=== PATIENT | male | born 1960 | race Caucasian/White ===

== ENCOUNTER 2019-05-11 17:04 | Emergency (ER) | payer OTHER ==
[~2019-05-11] VITALS: Ht 167.6 cm; Wt 68.0 kg
[2019-05-11 17:15] VITALS: BP 123/80
--- NOTE | 2019-05-11 17:15 | NUR ---
ED Nurse Note: Pt ambulated to ED c/o intermittent right side flank pain x 2 weeks;hx of kidney stone; reports no fever or chills. Placed on bed, VSS, NAD.
[2019-05-11] MEDS ORDERED: ZOLOFT100 MG ORAL (17:16)
[2019-05-11] MEDS ORDERED: ATORVASTATIN CA20 MG ORAL (17:16)
--- NOTE | 2019-05-11 17:28 | Emergency Room Report ---
History of Present Illness General Chief Complaint: Pain Source: Patient Present Illness HPI Disclaimer: Please note that this report is being documented using DRAGON technology. This can lead to erroneous entry secondary to incorrect interpretation by the dictating instrument. HPI: 58-year-old male history of recurrent nephrolithiasis presents for evaluation of flank pain. He reports right-sided aching and cramping pain for the past week. 2 weeks ago he passed a small stone and since then has had intermittent pain. Currently is 5/10. Does not radiate down to the groin. He has had stents, lithotripsy in the past. Does not follow regularly with a urologist. Denies dysuria but does note hematuria. Denies fevers, chills, abdominal pain, vomiting, diarrhea, chest pain, shortness of breath or other changes in his health. Denies pain in the testicles or groin. PMH: Recurrent kidney stones, thyroid dysfunction, hypercholesterolemia PSH: Lithotripsy Allergies: Penicillins, erythromycin, Flagyl Social Hx: Denies Allergies: Coded Allergies: AMOXICILLIN (Verified Allergy, Unknown, "STOMACH PROBLEM", 10/24/09) CEPHALOSPORINS (Verified Allergy, Unknown, HIVES, SWELLING, 10/24/09) ERYTHROMYCIN BASE (Verified Allergy, Unknown, "STOMACH PROBLEM", 10/24/09) METRONIDAZOLE (Verified Allergy, Unknown, RASH, 10/24/09) PENICILLINS (Verified Allergy, Unknown, RASH, 10/24/09) Nursing Documentation-PMH Past Medical History: No History, Except For Hx Cardiac Problems: No - Grave's disease Hx Hypertension: No - Kidney stone Hx Pacemaker: No Hx Asthma: No Hx COPD: No Hx Diabetes: No Hx Cancer: No Hx Gastrointestinal Problems: No Hx Dialysis: No History Of Psychiatric Problem: No - Depression Hx Neurological Problems: No Hx Cerebrovascular Accident: No Hx Seizures: No Review of Systems All Other Systems: negative except mentioned in HPI Physical Exam Vital Signs Date Time Temp Pulse Resp B/P (MAP) Pulse Ox O2 Delivery O2 Flow Rate FiO2 05/11/19 17:11 97.9 80 16 123/80 (94) 96 Room Air General: Awake and alert, no acute distress HEENT: NC/AT. EOMI. Resp: Normal work of breathing. Abdomen: Abdomen is soft, nondistended. Nontender Flank: Right-sided CVA tenderness, negative on the left. Skin: Intact. No abrasions, laceration or rash over the exposed skin MSK: Normal tone and bulk. Moving all extremities. No obvious deformity. Neuro: Awake and alert. Mentating appropriately. Medical Decision Making Diagnostic Impression: Primary Impression: Staghorn kidney stones Additional Impression: UTI (urinary tract infection) ER Course Is a 58-year-old male with a history of recurrent kidney stones presenting for evaluation of right-sided flank pain and hematuria for the past week. Differential includes was not limited to obstructing stone, pyelonephritis, UTI , nonobstructing stone, muscle ache/cramp. Given his history will obtain a CT scan to evaluate for obstruction, BMP to evaluate kidney function and urinalysis. Will give Toradol for pain. Laboratory Tests Test 05/11/19 17:20 05/11/19 17:44 Urine Color Pale yellow Urine Appearance Slightly cloudy Urine pH 7 (4.5-8.0) Urine Specific [place] 1.010 (1.005-1.035) Urine Protein 3+ (NEGATIVE) H Urine Glucose (UA) Negative (NEGATIVE) Urine Ketones Negative (NEGATIVE) Urine Blood 5+ (NEGATIVE) H Urine Nitrite Negative (NEGATIVE) Urine Bilirubin Negative (NEGATIVE) Urine Urobilinogen Normal MG/DL (0.0-1.0) Urine Leukocyte Esterase 2+ (NEGATIVE) H Urine RBC 60-80 /HPF (0 - 0) H Urine WBC 5-10 /HPF (0 - 0) H Urine Squamous Epithelial Cells None /LPF (NONE/OCC) Urine Bacteria Few /HPF (NONE) Sodium Level 143 MMOL/L (136-145) Potassium Level 4.1 MMOL/L (3.5-5.1) Chloride Level 106 MMOL/L (98-107) Carbon Dioxide Level 30 MMOL/L (21-32) Anion Gap 7 mmol/L (5-15) Blood Urea Nitrogen 10 mg/dL (7-18) Creatinine 0.9 MG/DL (0.55-1.30) Estimate Glomerular Filtration Rate > 60 mL/min (>60) Glucose Level 86 MG/DL (74-106) Calcium Level 9.4 MG/DL (8.5-10.1) CT/MRI/US Diagnostic Results CT/MRI/US Diagnostic Results : Impression Final Report EXAM: CT Abdomen and Pelvis Without Intravenous Contrast CLINICAL HISTORY: FLANK TECHNIQUE: Axial computed tomography images of the abdomen and pelvis without intravenous contrast. CTDI is 4.6 mGy and DLP is 262.7 mGy-cm. One or more of the following dose reduction techniques were used: automated exposure control, adjustment of the mA and/or kV according to patient size, use of iterative reconstruction technique. COMPARISON: None FINDINGS: Lung bases: Unremarkable. No mass. No consolidation. ABDOMEN: Liver: Unremarkable. Gallbladder and bile ducts: Unremarkable. No calcified stones. No ductal dilation. Pancreas: Unremarkable. No ductal dilation. Spleen: Small splenule. Adrenals: Unremarkable. No mass. Kidneys and ureters: Staghorn calculus in the right renal pelvis, measuring approximately 2 cm. Mild to moderate right hydronephrosis. Periureteral fat stranding. Small left renal cyst. No hydronephrosis or stone on the left. Stomach and bowel: Stomach is mildly distended with ingested material. This may be related to a recent meal. Diverticulosis without evidence of diverticulitis. PELVIS: Appendix: Normal appendix. Bladder: Prominence of the bladder wall may be secondary to underdistention. Please correlate with urinalysis if concerned for cystitis. No stones. Reproductive: Calcifications of the prostate. ABDOMEN and PELVIS: Intraperitoneal space: Unremarkable. No free air. No significant fluid collection. Bones/joints: No acute fracture. No dislocation. Soft tissues: Unremarkable. Vasculature: Unremarkable. No abdominal aortic aneurysm. Lymph nodes: Unremarkable. No enlarged lymph nodes. IMPRESSION: 1. Staghorn calculus in the right renal pelvis, measuring approximately 2 cm. Mild to moderate right hydronephrosis. Periureteral fat stranding. 2. Prominence of the bladder wall may be secondary to underdistention. Please correlate with urinalysis if concerned for cystitis. Radiologist: Marshal Alcantar M.D. Electronically Signed: 05/11/19 18:52 Phone: Study ready at 18:04 and initial results transmitted at 18:52 Reevaluation Time: 19:24 Last Vital Signs Date Time Temp Pulse Resp B/P (MAP) Pulse Ox O2 Delivery O2 Flow Rate FiO2 05/11/19 17:11 97.9 80 16 123/80 (94) 96 Room Air Reevaluation Impression CT scan shows a staghorn calculi in the right kidney.Urinalysis concerning for acute infection showing 2+ leukocyte esterase and 5-10 white cells though only few bacteria. Given the findings of the renal calculi will treat with ciprofloxacin for 2 weeks per urology recommendations. Patient will follow up with urology on an outpatient basis. Referred to clinic. Referred to primary care as well. He is well-appearing otherwise with normal renal function. Can be followed up on an outpatient basis. He understands reasons to return to the emergency department and agrees with this treatment plan Disposition: HOME, SELF-CARE Condition: Stable Scripts Ciprofloxacin Hcl* (CIPROFLOXACIN HCL*) 500 Mg Tablet 500 MG ORAL Q12H for 14 Days, #28 TAB 0 Refills Prov: Aldair Powell MD 05/11/19 Ibuprofen* (MOTRIN*) 600 Mg Tablet 600 MG ORAL Q6H PRN for For Pain, #30 TAB 0 Refills Prov: Aldair Powell MD 05/11/19 Aldair Powell MD May 11, 2019 17:28
[2019-05-11] MEDS ORDERED: Ketorolac 30mg Inj IV ONE (17:30)
--- NOTE | 2019-05-11 17:41 | NUR ---
ED Nurse Note: Pt went on CT ambulatory accompanied by tech.
[2019-05-11 17:55] LABS: APPEARANCE,URINE SLIGHTLY CLOUDY; BILIRUBIN, URINE NEGATIVE (NEGATIVE); COLOR,URINE PALE YELLOW; GLUCOSE, URINE (UA) NEGATIVE (NEGATIVE); KETONES,URINE NEGATIVE (NEGATIVE); LEUKOCYTE ESTERASE ,URINE 2+ (NEGATIVE); NITRITE,URINE NEGATIVE (NEGATIVE); PH,URINE 7 (4.5-8.0); PROTEIN,URINE 3+ (NEGATIVE); UROBILINOGEN,URINE NORMAL MG/DL (0.0-1.0)
[2019-05-11 17:55] LABS: ANION GAP 7 mmol/L (5-15); BLOOD UREA NITROGEN 10 mg/dL (7-18); CALCIUM 9.4 MG/DL (8.5-10.1); CARBON DIOXIDE 30 MMOL/L (21-32); CHLORIDE 106 MMOL/L (98-107); CREATININE 0.9 MG/DL (0.55-1.30); POTASSIUM 4.1 MMOL/L (3.5-5.1); SODIUM 143 MMOL/L (136-145)
--- NOTE | 2019-05-11 18:53 | Diagnostic Imaging Report ---
EXAM: CT Abdomen and Pelvis Without Intravenous Contrast CLINICAL HISTORY: FLANK TECHNIQUE: Axial computed tomography images of the abdomen and pelvis without intravenous contrast. CTDI is 4.6 mGy and DLP is 262.7 mGy-cm. One or more of the following dose reduction techniques were used: automated exposure control, adjustment of the mA and/or kV according to patient size, use of iterative reconstruction technique. COMPARISON: None FINDINGS: Lung bases: Unremarkable. No mass. No consolidation. ABDOMEN: Liver: Unremarkable. Gallbladder and bile ducts: Unremarkable. No calcified stones. No ductal dilation. Pancreas: Unremarkable. No ductal dilation. Spleen: Small splenule. Adrenals: Unremarkable. No mass. Kidneys and ureters: Staghorn calculus in the right renal pelvis, measuring approximately 2 cm. Mild to moderate right hydronephrosis. Periureteral fat stranding. Small left renal cyst. No hydronephrosis or stone on the left. Stomach and bowel: Stomach is mildly distended with ingested material. This may be related to a recent meal. Diverticulosis without evidence of diverticulitis. PELVIS: Appendix: Normal appendix. Bladder: Prominence of the bladder wall may be secondary to underdistention. Please correlate with urinalysis if concerned for cystitis. No stones. Reproductive: Calcifications of the prostate. ABDOMEN and PELVIS: Intraperitoneal space: Unremarkable. No free air. No significant fluid collection. Bones/joints: No acute fracture. No dislocation. Soft tissues: Unremarkable. Vasculature: Unremarkable. No abdominal aortic aneurysm. Lymph nodes: Unremarkable. No enlarged lymph nodes. IMPRESSION: 1. Staghorn calculus in the right renal pelvis, measuring approximately 2 cm. Mild to moderate right hydronephrosis. Periureteral fat stranding. 2. Prominence of the bladder wall may be secondary to underdistention. Please correlate with urinalysis if concerned for cystitis.
--- NOTE | 2019-05-11 19:09 | NUR ---
HAND-OFF: Report given to Prince BEAUCHAMP.
[2019-05-11 19:10] VITALS: BP 120/82
--- NOTE | 2019-05-11 19:10 | NUR ---
ED Nurse Note: Pt report recieved from QUYNH Noble. PT VSS, no s/s of distress noted. pt resting in bed.
[2019-05-11] MEDS ORDERED: IBUPROFEN600 MG ORAL (19:58)
[2019-05-11] MEDS ORDERED: CIPROFLOXACIN500 M2 ORAL ×3 (19:58→20:08)
[2019-05-11 20:34] VITALS: BP 120/82
--- NOTE | 2019-05-11 20:34 | NUR ---
ER DISCHARGE NOTE: Patient is cleared to be discharged home per ERMD, pt is aox4, on room air, with stable vital signs. pt was given dc and prescription instructions, pt was able to verbalize understanding, pt id band and iv site removed without complications. pt is able to ambulate with steady gait. pt took all belongings.
== END 2019-05-11 20:34 | disposition home or self-care (01) ==
LOC: EMR 17:51
DX: N20.0 Calculus of kidney (principal); N13.30 Unspecified hydronephrosis; N39.0 Urinary tract infection, site not specified; F32.9 Major depressive disorder, single episode, unspecified; E78.00 Pure hypercholesterolemia, unspecified; Z88.0 Allergy status to penicillin; Z88.8 Allergy status to other drugs, medicaments and biological substances
CPT/HCPCS: 36415; 74176; 80048; 81003; 96374; J1885; Z7502; 99284

== ENCOUNTER 2019-06-02 23:27 | Emergency (ER) | payer OTHER ==
[~2019-06-02] VITALS: Ht 167.6 cm; Wt 68.0 kg
[~2019-06-02 23:27] MED LIST: ATORVASTATIN CA20 MG ORAL; CIPROFLOXACIN500 M2 ORAL; IBUPROFEN600 MG ORAL; ZOLOFT100 MG ORAL
[2019-06-03 00:05] VITALS: BP 112/75
--- NOTE | 2019-06-03 00:05 | NUR ---
ED Nurse Note: Patient walked in to ER c/o RT flank pain since few weeks. Pt stated he was in ER for the same reason and got a CT scan and a large stone about 2 cm was found. Pt stated pain has not passes and pain is getting severe. Patient stated he has follow up appt but has not gone. Denies difficulty urinating; stated slight blood in urine while voiding, AAO x4, VSS at this time.
[2019-06-03] MEDS ORDERED: Ketorolac 30mg Inj IV ONE (00:30)
[2019-06-03 00:55] LABS: APPEARANCE,URINE CLOUDY; BASOPHILS % (AUTO) 1.2 % (0.0-2.0); BILIRUBIN, URINE NEGATIVE (NEGATIVE); EOSINOPHILS % (AUTO) 6.2 % (0.0-3.0); GLUCOSE, URINE (UA) NEGATIVE (NEGATIVE); HEMOGLOBIN 15.1 G/DL (14.2-18.0); KETONES,URINE 1+ (NEGATIVE); LEUKOCYTE ESTERASE ,URINE 2+ (NEGATIVE); LYMPHOCYTES % (AUTO) 29.4 % (20.0-45.0); MEAN CORPUSCULAR VOLUME 91 FL (80-99); MONOCYTES % (AUTO) 9.3 % (1.0-10.0); NEUTROPHILS % (AUTO) 53.9 % (45.0-75.0); NITRITE,URINE NEGATIVE (NEGATIVE); PH,URINE 6 (4.5-8.0); PLATELET COUNT 188 K/UL (150-450); PROTEIN,URINE 4+ (NEGATIVE); RED BLOOD COUNT 4.74 M/UL (4.70-6.10); RED CELL DISTRIBUTION WIDTH 10.3 % (11.6-14.8); UROBILINOGEN,URINE NORMAL MG/DL (0.0-1.0); WHITE BLOOD COUNT 8.4 K/UL (4.8-10.8)
[2019-06-03 01:04] LABS: COLOR,URINE YELLOW
[2019-06-03 01:07] LABS: ANION GAP 9 mmol/L (5-15); BLOOD UREA NITROGEN 15 mg/dL (7-18); CALCIUM 9.4 MG/DL (8.5-10.1); CARBON DIOXIDE 28 MMOL/L (21-32); CHLORIDE 105 MMOL/L (98-107); CREATININE 1.8 MG/DL (0.55-1.30); POTASSIUM 4.4 MMOL/L (3.5-5.1); SODIUM 142 MMOL/L (136-145)
[2019-06-03 01:11] LABS: ALANINE AMINOTRANSFERASE 36 U/L (12-78); ALBUMIN 3.7 G/DL (3.4-5.0); ALBUMIN/GLOBULIN RATIO 1.1 (1.0-2.7); ALKALINE PHOSPHATASE 89 U/L (46-116); ASPARTATE AMINO TRANSFERASE 27 U/L (15-37); BILIRUBIN,TOTAL 0.4 MG/DL (0.2-1.0)
--- NOTE | 2019-06-03 01:50 | Diagnostic Imaging Report ---
EXAM: US Abdomen Complete CLINICAL HISTORY: PAIN TECHNIQUE: Real-time ultrasound of the abdomen with image documentation. COMPARISON: CT abdomen and pelvis 05/09/2019 FINDINGS: Liver: Liver 12.9 cm No intrahepatic bile duct dilation. Gallbladder: Gallbladder not seen. Common bile duct: CBD 0.3 cm No stones. No dilation. Pancreas: Pancreas obscured due to bowel gas shadowing. Kidneys: Poorly evaluated right renal stone limited in visualization due to shadowing, stone measures at least 1.5 cm in length. Mildly prominent right renal collecting system, no clear findings to suggest hydronephrosis. Right kidney 10 cm Left kidney 9 cm Spleen: Spleen 8.9 cm Aorta: Unremarkable. No aneurysm. Inferior vena cava: Unremarkable. Other findings: If there is further concern, recommend CT. IMPRESSION: 1. Gallbladder not seen. 2. Pancreas obscured due to bowel gas shadowing. 3. Poorly evaluated right renal stone limited in visualization due to shadowing, stone measures at least 1.5 cm in length. 4. Mildly prominent right renal collecting system, no clear findings to suggest hydronephrosis. 5. If there is further concern, recommend CT.
[2019-06-03] MEDS ORDERED: PERCOCET 5-3251 EACH ORAL (04:29)
[2019-06-03 04:38] VITALS: BP 112/75
--- NOTE | 2019-06-03 04:38 | NUR ---
ER DISCHARGE NOTE: Patient is cleared to be discharged per ERMD, pt is aox4, on room air, with stable vital signs. pt was given dc and prescription instructions, pt was able to verbalize understanding, pt id band and iv site removed without complications. pt is able to ambulate with steady gait. pt took all belongings.
--- NOTE | 2019-06-07 10:28 | Emergency Room Report ---
History of Present Illness General Chief Complaint: Abdominal Pain Present Illness HPI Patient is a 58-year-old male presents after increased right-sided flank pain. Had prior history of kidney stones. Had recently been seen at this facility and had previous work-up. Had previously known right staghorn calculus. He had been scheduled to follow-up with urology but had not followed up yet. He had worsening discomfort to the right side of his abdomen. He denies any vomiting. He reports having some fever. He denies any vomiting or diarrhea. He reports having previous urologic surgery to break up stones. He states these were oxalate stones in the past. Allergies: Coded Allergies: AMOXICILLIN (Verified Allergy, Unknown, "STOMACH PROBLEM", 10/24/09) CEPHALOSPORINS (Verified Allergy, Unknown, HIVES, SWELLING, 10/24/09) ERYTHROMYCIN BASE (Verified Allergy, Unknown, "STOMACH PROBLEM", 10/24/09) METRONIDAZOLE (Verified Allergy, Unknown, RASH, 10/24/09) PENICILLINS (Verified Allergy, Unknown, RASH, 10/24/09) Patient History Past Medical History: see triage record Reviewed Nursing Documentation: PMH: Agreed Nursing Documentation-PMH Hx Cardiac Problems: No - Grave's disease Hx Hypertension: No - Kidney stone Hx Pacemaker: No Hx Asthma: No Hx COPD: No Hx Diabetes: No Hx Cancer: No Hx Gastrointestinal Problems: No Hx Dialysis: No Hx Neurological Problems: No Hx Cerebrovascular Accident: No Hx Seizures: No Review of Systems All Other Systems: negative except mentioned in HPI Physical Exam Sp02 EP Interpretation: reviewed, normal General Appearance: normal inspection, well appearing, no apparent distress, alert, GCS 15 Head: atraumatic ENT: normal ENT inspection, hearing grossly normal, normal voice Neck: normal inspection, full range of motion, supple, no bony tend Respiratory: normal inspection, lungs clear, normal breath sounds, no respiratory distress, no retraction, no wheezing Cardiovascular #1: regular rate, rhythm, no edema Gastrointestinal: normal inspection, normal bowel sounds, non tender, soft, no guarding, no hernia Genitourinary: no CVA tenderness Musculoskeletal: normal inspection, back normal, normal range of motion Neurologic: alert, motor strength/tone normal, load tester III-XII nml as tested, oriented x3, responsive, speech normal, normal inspection Psychiatric: normal inspection, judgement/insight normal, mood/affect normal Medical Decision Making Diagnostic Impression: Primary Impression: Staghorn kidney stones ER Course Patient presented for flank pain. Differential diagnosis include was not limited to kidney stone, urinary tract infection, abscess among others. Because of complexity of patient's case laboratory tests and imaging studies were ordered. Patient was noted to have recent CT imaging. Laboratory studies were ordered. Patient is currently taking Cipro . He reports having multiple allergies to antibiotics. patient's case was discussed with Dr. Chakraborty for urology. He suggests that patient have urologic evaluation at a [facility] due to chronic staghorn calculus. Patient appears to be stable for outpatient reevaluation with his urologist. Patient was given IV fluids as well as IV medications for pain. Patient was advised not to continue NSAIDs. He was given prescription for pain medications. He was advised to follow-up with urology on an urgent basis. He was advised to continue taking his Cipro . The patient is advised to follow up with primary care doctor in 1-2 days. Patient is advised to return if any worsening condition or if any changes in status that are concerning. This report is dictated with [employer] lpn software which may occasionally lead to discrepancies related to use of this software. Labs Test 06/03/19 00:41 White Blood Count 8.4 K/UL (4.8-10.8) Red Blood Count 4.74 M/UL (4.70-6.10) Hemoglobin 15.1 G/DL (14.2-18.0) Hematocrit 43.0 % (42.0-52.0) Mean Corpuscular Volume 91 FL (80-99) Mean Corpuscular Hemoglobin 31.9 PG (27.0-31.0) Mean Corpuscular Hemoglobin Concent 35.2 G/DL (32.0-36.0) Red Cell Distribution Width 10.3 % (11.6-14.8) Platelet Count 188 K/UL (150-450) Mean Platelet Volume 7.6 FL (6.5-10.1) Neutrophils (%) (Auto) 53.9 % (45.0-75.0) Lymphocytes (%) (Auto) 29.4 % (20.0-45.0) Monocytes (%) (Auto) 9.3 % (1.0-10.0) Eosinophils (%) (Auto) 6.2 % (0.0-3.0) Basophils (%) (Auto) 1.2 % (0.0-2.0) Urine Color Yellow Urine Appearance Cloudy Urine pH 6 (4.5-8.0) Urine Specific [place] 1.025 (1.005-1.035) Urine Protein 4+ (NEGATIVE) Urine Glucose (UA) Negative (NEGATIVE) Urine Ketones 1+ (NEGATIVE) Urine Blood 5+ (NEGATIVE) Urine Nitrite Negative (NEGATIVE) Urine Bilirubin Negative (NEGATIVE) Urine Urobilinogen Normal MG/DL (0.0-1.0) Urine Leukocyte Esterase 2+ (NEGATIVE) Urine RBC Tntc /HPF (0 - 0) Urine WBC 15-20 /HPF (0 - 0) Urine Squamous Epithelial Cells Few /LPF (NONE/OCC) Urine Calcium Oxalate Crystals Few /LPF (NONE) Urine Bacteria Few /HPF (NONE) Sodium Level 142 MMOL/L (136-145) Potassium Level 4.4 MMOL/L (3.5-5.1) Chloride Level 105 MMOL/L (98-107) Carbon Dioxide Level 28 MMOL/L (21-32) Anion Gap 9 mmol/L (5-15) Blood Urea Nitrogen 15 mg/dL (7-18) Creatinine 1.8 MG/DL (0.55-1.30) Estimat Glomerular Filtration Rate 39.1 mL/min (>60) Glucose Level 105 MG/DL (74-106) Calcium Level 9.4 MG/DL (8.5-10.1) Total Bilirubin 0.4 MG/DL (0.2-1.0) Aspartate Amino Transf (AST/SGOT) 27 U/L (15-37) Alanine Aminotransferase (ALT/SGPT) 36 U/L (12-78) Alkaline Phosphatase 89 U/L (46-116) Total Protein 7.2 G/DL (6.4-8.2) Albumin 3.7 G/DL (3.4-5.0) Globulin 3.5 g/dL Albumin/Globulin Ratio 1.1 (1.0-2.7) Lipase 210 U/L (73-393) Status: improved Disposition: HOME, SELF-CARE Condition: Stable Scripts Oxycodone/Acetaminophen 5-325* (PERCOCET 5-325 MG TABLET*) 1 Each Tablet 1 TAB ORAL Q6H PRN for For Pain, #12 TAB 0 Refills Prov: Reid Norwood MD 06/03/19 Referrals: [facility],REFERRING (PCP) Patient Instructions: Kidney Stones, [id number] Redi Norwood MD Jun 07, 2019 10:28
== END 2019-06-03 04:38 | disposition home or self-care (01) ==
LOC: EMR 23:59 → EDBEDREQ 06-03 04:16 → CANBEDREQ 06-03 04:26 → EMR 06-03 04:38
DX: N20.0 Calculus of kidney (principal); R50.9 Fever, unspecified; Z88.0 Allergy status to penicillin; Z88.8 Allergy status to other drugs, medicaments and biological substances
CPT/HCPCS: 36415; 76700; 80053; 81003; 83690; 85025; 87086; 96361; 96374; J1885; J7030; J7040; Z7502; 99284